=== PATIENT | female | born 1980 | race Caucasian/White ===

== ENCOUNTER 2018-11-28 16:04 | Emergency (ER) | payer SELFPAY ==
[~2018-11-28] VITALS: Ht 170.2 cm; Wt 68.5 kg
[2018-11-28 16:10] VITALS: BP 135/93
--- NOTE | 2018-11-28 16:20 | NUR ---
PATIENT PRESENTS TO THE ED WITH C/O DIZZINESS. PER PATIENT SHE WAS GETTING READY TO GO TO WORK AND DRANK ORANGE JUICE WHEN SHE SUDDENLY FELT DIZZY. PT REPORTS HAVING ONE EPISODE OF EMESIS. DENIES PAIN OR DIARRHEA. BED LOWERED WITH SIDE RAILS UP. WILL CONTINUE TO MONITOR
--- NOTE | 2018-11-28 16:51 | NUR ---
PT BEING EVALUATED BY DR MONTEZ
[2018-11-28] MEDS ORDERED: PROMETHAZINE 25 MG/ML VIAL IM ONE (17:00)
[2018-11-28] MEDS ORDERED: FAMOTIDINE 20 MG TAB PO ONE (17:00)
[2018-11-28] MEDS ORDERED: methylPREDNISolone SS 125 MG in WATER STERILE 2 ML IM ONE (17:00)
[2018-11-28] MEDS ORDERED: ONDANSETRON 4 MG ODT PO ONE (17:00)
[2018-11-28 17:29] LABS: APPEARANCE,URINE CLEAR (CLEAR); BILIRUBIN,URINE NEGATIVE (NEGATIVE); BLOOD, URINE NEGATIVE (NEGATIVE); COLOR,URINE YELLOW (YELLOW); LEUKOCYTE ESTERASE ,URINE NEGATIVE (NEGATIVE); NITRITE, URINE NEGATIVE (NEGATIVE); PH,URINE 7.5 (5.0-9.0); UGLUCOSE NEGATIVE (NEGATIVE)
[2018-11-28 19:12] VITALS: BP 126/88
--- NOTE | 2018-11-28 19:12 | NUR ---
Patient discharged with v/s stable. Written and verbal after care instructions given and explained. Patient alert, oriented and verbalized understanding of instructions. Ambulatory with steady gait. All questions addressed prior to discharge. ID band removed. Patient advised to follow up with PMD. Rx of FAMOTIDINE, ATARAZX WAS given. Patient educated on indication of medication including possible reaction and side effects. Opportunity to ask questions provided and answered.
== END 2018-11-28 19:12 | disposition home or self-care (01) ==
LOC: MED 16:04
DX: T78.1XXA Other adverse food reactions, not elsewhere classified, initial encounter (principal); R42 Dizziness and giddiness; F41.9 Anxiety disorder, unspecified; X58.XXXA Exposure to other specified factors, initial encounter
CPT/HCPCS: 81003; 81025; 87804; 96372; 99283; J2550; J2930; Q0162; 36415

== ENCOUNTER 2019-09-23 11:12 | Emergency (ER) | payer MEDICAID ==
[~2019-09-23] VITALS: Ht 170.2 cm; Wt 63.5 kg
[2019-09-23 11:16] VITALS: BP 131/76
--- NOTE | 2019-09-23 11:22 | NUR ---
Patient ambulated to bed 12. RN evaluating patient at bedside.
--- NOTE | 2019-09-23 11:34 | NUR ---
C/O R EAR PAIN 02/04 STARTING 5 DAYS AGO ACCOMPAINED BY N/V. PT STATES SHE ATTEMPTED TO USE PEROXIDE IN HER EAR BUT IT MADE HER SYMPTOMS WORSE. DENIES ABD PAIN, DIARRHEA, ETC. PT DENIES INJURY TO R EAR. STATES SHE USES A HEADPIECE AT WORK. BED IN LOW POSITION, SIDE RAIL UP X1.
--- NOTE | 2019-09-23 12:05 | NUR ---
ERMD AT BEDSIDE
[2019-09-23] MEDS ORDERED: NACL 0.9% 1,000 ML IV SCH (12:08)
[2019-09-23] MEDS ORDERED: ONDANSETRON 4 MG/2 ML VIAL IVP ONE (12:10)
--- NOTE | 2019-09-23 12:20 | NUR ---
PT UNABLE TO URINATE AT THIS TIME.
[2019-09-23 13:10] LABS: BASOPHILS % (AUTO) 0.3 % (0.0-2.0); EOSINOPHILS # (AUTO) 0.1 K/uL (0-0.4); HEMATOCRIT 42.4 % (36-48); LYMPHOCYTES # (AUTO) 1.5 K/uL (2.5-16.5); LYMPHOCYTES % (AUTO) 20.5 % (20.5-51.1); MEAN CORPUSCULAR HEMOGLOBIN 31 pg (27-31); MEAN CORPUSCULAR HGB CONC 33 g/dL (33-37); MEAN CORPUSCULAR VOLUME 92.8 fL (80-94); MONOCYTES # (AUTO) 0.8 K/uL (0.8-1.0); MONOCYTES % (AUTO) 11.1 % (1.7-9.3); NEUTROPHILS # (AUTO) 4.7 K/uL (1.8-7.7); NEUTROPHILS % (AUTO) 67.1 % (42.2-75.2); PLATELET COUNT (AUTO) 303 K/uL (140-450); RED BLOOD CELL COUNT(AUTO) 4.57 MIL/uL (4.20-5.40); RED CELL DISTRIBUTION WIDTH 12.8 % (11.6-13.7); WHITE BLOOD COUNT (AUTO) 7.1 K/uL (4.8-10.8)
[2019-09-23 13:23] LABS: ALBUMIN 3.4 g/dL (3.4-5.0); ANION GAP 16.4 (8-16); CARBON DIOXIDE 24.2 mmol/L (21-32); POTASSIUM 3.6 mmol/L (3.5-5.1); TOTAL BILIRUBIN 0.2 mg/dL (0.0-1.0)
--- NOTE | 2019-09-23 13:43 | NUR ---
URINE COLLECTED AND SENT TO LAB.
--- NOTE | 2019-09-23 14:50 | NUR ---
PT ASLEEP IN BED, NO NEW NEEDS AT THIS TIME
[2019-09-23 15:04] LABS: APPEARANCE,URINE HAZY (CLEAR); BILIRUBIN,URINE NEGATIVE (NEGATIVE); BLOOD, URINE NEGATIVE (NEGATIVE); COLOR,URINE YELLOW (YELLOW); LEUKOCYTE ESTERASE ,URINE NEGATIVE (NEGATIVE); NITRITE, URINE NEGATIVE (NEGATIVE); UGLUCOSE NEGATIVE (NEGATIVE)
[2019-09-23 16:31] VITALS: BP 121/73
--- NOTE | 2019-09-23 16:33 | NUR ---
Patient discharged with v/s stable. Written and verbal after care instructions given and explained. Patient alert, oriented and verbalized understanding of instructions. Ambulatory with steady gait. All questions addressed prior to discharge. ID band removed. Patient advised to follow up with PMD. Rx of CORTICOSPORIN given. Patient educated on indication of medication including possible reaction and side effects. Opportunity to ask questions provided and answered.
== END 2019-09-23 16:33 | disposition home or self-care (01) ==
LOC: MED 11:12
DX: H60.91 Unspecified otitis externa, right ear (principal); R11.2 Nausea with vomiting, unspecified
CPT/HCPCS: 36415; 80053; 81003; 83690; 84703; 85025; 96361; 96374; 99283; J2405; J7030

== ENCOUNTER 2020-08-12 23:32 | Emergency (ER) | payer MEDICAID, OTHER ==
[~2020-08-12] VITALS: Ht 170.2 cm; Wt 68.0 kg
[2020-08-12 23:40] VITALS: BP 133/83
--- NOTE | 2020-08-12 23:42 | NUR ---
To ED bed 05
--- NOTE | 2020-08-12 23:50 | NUR ---
PT 40 Y/O FEMALE BIB SELF FOR C/O "ALLERGIC REACTION" X 2 HOURS AGO WHEN GETTING STUNG BY A BEE. PT STATES, "LAST TIME I GOT STUNG BY A BEE I NEEDED TO GET EPI BECAUSE MY THROAT CLOSED UP." PT CURRENTLY DENIES THROAT DISCOMFORT. PT RESPIRATIONS ARE EVEN AND UNLABORED. LUNG SOUNDS CLEAR A/P BIALT. O2 SAT@ 99% ON RA. PT ADMITS TO TAKING 2 BENEDRYL PRIOR TO ARRIVAL. MEDHX: ULCERATIVE COLITIS NKA
--- NOTE | 2020-08-13 00:06 | NUR ---
ERMD AT BEDSIDE.
[2020-08-13] MEDS ORDERED: methylPREDNISolone SS 125 MG in WATER STERILE 2 ML IM ONE (00:10)
[2020-08-13] MEDS ORDERED: methylPREDNISolone SS 125 MG/2 ML VIAL ONE (00:22)
[2020-08-13] MEDS ORDERED: WATER STERILE 10 ML MC ONE (00:22)
[2020-08-13 00:32] VITALS: BP 133/83
--- NOTE | 2020-08-13 00:32 | NUR ---
Patient discharged with v/s stable. Written and verbal after care instructions given and explained. Patient alert, oriented and verbalized understanding of instructions. Ambulatory with steady gait. All questions addressed prior to discharge. ID band removed. Patient advised to follow up with PMD. Rx of PEPCID,EPIPEN, PREDNISONE, DIPHENHYDRAMINE given. Patient educated on indication of medication including possible reaction and side effects. Opportunity to ask questions provided and answered.
== END 2020-08-13 00:32 | disposition home or self-care (01) ==
LOC: MED 23:32
DX: T63.441A Toxic effect of venom of bees, accidental (unintentional), initial encounter (principal); L50.0 Allergic urticaria; Y92.89 Other specified places as the place of occurrence of the external cause
CPT/HCPCS: 96372; 99283; J2930

== ENCOUNTER 2020-10-15 11:43 | Emergency (ER) | payer OTHER ==
[~2020-10-15] VITALS: Ht 170.2 cm; Wt 68.0 kg
[2020-10-15 11:55] VITALS: BP 111/83
--- NOTE | 2020-10-15 11:59 | NUR ---
Patient ambulated to chair A. RN evaluating patient.
--- NOTE | 2020-10-15 12:00 | NUR ---
40 y/o female from home c/o right ear discomfort x 2 wks. Pt states dizziness due to discomfort with nausea. Has been using over the counter ear drops with no relief. Denies pain. Awake and alert. VSS
[2020-10-15 13:19] VITALS: BP 111/83
--- NOTE | 2020-10-15 13:19 | NUR ---
Patient discharged with v/s stable. Written and verbal after care instructions given and explained. Patient alert, oriented and verbalized understanding of instructions. Ambulatory with steady gait. All questions addressed prior to discharge. ID band removed. Patient advised to follow up with PMD. Rx of OFLOXACIN given. Patient educated on indication of medication including possible reaction and side effects. Opportunity to ask questions provided and answered.
== END 2020-10-15 13:19 | disposition home or self-care (01) ==
LOC: MED 11:43
DX: H60.8X1 Other otitis externa, right ear (principal)
CPT/HCPCS: 99283

== ENCOUNTER 2021-04-02 21:50 | Emergency (ER) | payer OTHER ==
[~2021-04-02] VITALS: Ht 170.2 cm; Wt 72.6 kg
[2021-04-02 21:55] VITALS: BP 123/82
--- NOTE | 2021-04-02 21:58 | NUR ---
TO LOBBY A/W BED AMBULATORY
--- NOTE | 2021-04-02 23:55 | NUR ---
AMBULATED TO ROOM 7
--- NOTE | 2021-04-03 00:02 | NUR ---
41 Y/O PATIENT PRESENTS TO ED C/O BURN IN RT UPPER LEG . PT STATES "I ACCIDENTALLY DROPPED ACID ON MY LEGS WHEN I WAS USING GOLD TESTING KIT. I'M JUST CONCERNED THAT IT GOT INFECTED." . DENIES N/V/D; SKIN IS PINK/WARM/DRY; AAOX4 WITH EVEN AND STEADY GAIT; LUNGS CLEAR BL; HR EVEN AND REGULAR; PT DENIES ANY FEVER, CP, SOB, OR COUGH AT THIS TIME; PATIENT STATES PAIN OF 3/10 AT THIS TIME; VSS; PATIENT POSITIONED FOR COMFORT; HOB ELEVATED; BEDRAILS UP X2; BED DOWN. ER MD MADE AWARE OF PT STATUS. NKA PMH: DENIES
[2021-04-03] MEDS ORDERED: SILVER SULFADIAZINE 1% 50 GM JAR TP ONE (00:25)
[2021-04-03] MEDS ORDERED: SULFAMETH/TRIMETH DS 800/160MG 1 TAB PO ONE (00:25)
[2021-04-03] MEDS ORDERED: SILV-55 TP (00:27)
[2021-04-03] MEDS ORDERED: SULF-59 PO (00:27)
--- NOTE | 2021-04-03 00:47 | NUR ---
Patient discharged with v/s stable. Written and verbal after care instructions given and explained. Patient alert, oriented and verbalized understanding of instructions. Ambulatory with steady gait. All questions addressed prior to discharge. ID band removed. Patient advised to follow up with PMD. Rx of BACTRIM AND SILVADENE given. Patient educated on indication of medication including possible reaction and side effects. Opportunity to ask questions provided and answered.
[2021-04-03 00:49] VITALS: BP 123/82
== END 2021-04-03 00:47 | disposition home or self-care (01) ==
LOC: MED 21:50
DX: T23.101A Burn of first degree of right hand, unspecified site, initial encounter (principal); X12.XXXA Contact with other hot fluids, initial encounter; Y93.89 Activity, other specified; Y92.89 Other specified places as the place of occurrence of the external cause; Y99.8 Other external cause status
CPT/HCPCS: 16020; 99283

== ENCOUNTER 2021-06-12 14:01 | Emergency (ER) | payer OTHER ==
[~2021-06-12] VITALS: Ht 170.2 cm; Wt 72.6 kg
[~2021-06-12 14:01] MED LIST: SILV-55 TP; SULF-59 PO
[2021-06-12 14:25] VITALS: BP 124/69
--- NOTE | 2021-06-12 14:47 | NUR ---
41 yo f c/o dysuria, hematuria and bilateral flank pain x 4 days. Pt is now expericning lower back tenderness since this am and is positive for CVA tenderness. Pt has had vomiting since this am, and is -abdominal pain and -fever. lmp: 05/17/21 pmh: ulcerative colitis medS: none nka
[2021-06-12] MEDS ORDERED: VIB100 PO (15:33)
[2021-06-12] MEDS ORDERED: CEPH-588 PO (15:33)
[2021-06-12] MEDS ORDERED: cefTRIAXone 500 MG VIAL ONE (15:35)
[2021-06-12] MEDS ORDERED: LIDOCAINE MPF 1% 5 ML ONE (15:36)
[2021-06-12] MEDS: cephALEXin 500 MG CAP PO ONE (15:43)
[2021-06-12] MEDS: cefTRIAXone 500 MG in LIDOCAINE MPF 1% 1 ML IM ONE (15:43)
[2021-06-12] MEDS: DOXYCYCLINE 100 MG CAP PO SCH (15:43)
[2021-06-12 15:54] VITALS: BP 114/71
--- NOTE | 2021-06-12 15:55 | NUR ---
Patient discharged with v/s stable. Written and verbal after care instructions given and explained. Patient alert, oriented and verbalized understanding of instructions. Ambulatory with steady gait. All questions addressed prior to discharge. ID band removed. Patient advised to follow up with PMD. Rx of doxycycline and keflex given. Patient educated on indication of medication including possible reaction and side effects. Opportunity to ask questions provided and answered.
== END 2021-06-12 15:55 | disposition home or self-care (01) ==
LOC: MED 14:01
DX: N39.0 Urinary tract infection, site not specified (principal); Z11.3 Encounter for screening for infections with a predominantly sexual mode of transmission
CPT/HCPCS: 36415; 81002; 81025; 87086; 87491; 96372; 99283; J0696; J2001

== ENCOUNTER 2022-02-22 12:02 | Emergency (ER) | payer OTHER ==
[~2022-02-22] VITALS: Ht 170.2 cm; Wt 76.3 kg
[~2022-02-22 12:02] MED LIST changes: +CEPH-588 PO; +VIB100 PO
[2022-02-22 12:04] VITALS: BP 117/84
--- NOTE | 2022-02-22 12:12 | NUR ---
BIB SELF C/O 04/06 LEFT EAR PAIN X 3 DAYS , SORE THROAT X LAST NIGHT.PMH: COLITIS. DENIES N/V/D; SKIN IS PINK/WARM/DRY; AAOX4 WITH EVEN AND STEADY GAIT; LUNGS CLEAR BL; HR EVEN AND REGULAR; PT DENIES ANY FEVER, CP, SOB, OR COUGH AT THIS TIME.
--- NOTE | 2022-02-22 13:00 | NUR ---
Patient being evaluated by LUCERO MASCORRO at [facility].
[2022-02-22] MEDS ORDERED: PHEN177S23 PO (13:03)
[2022-02-22] MEDS ORDERED: PRED20TA5 PO (13:03)
[2022-02-22] MEDS ORDERED: NAPR-54 PO (13:03)
[2022-02-22] MEDS ORDERED: KETOROLAC 30 MG/ML VIAL IM ONE (13:05)
[2022-02-22 13:33] VITALS: BP 119/78
--- NOTE | 2022-02-22 13:33 | NUR ---
Patient discharged with v/s stable. Written and verbal after care instructions given and explained. Patient alert, oriented and verbalized understanding of instructions. Ambulatory with steady gait. All questions addressed prior to discharge. ID band removed. Patient advised to follow up with PMD. Rx of NAPROSYN, DELTASONE & PHENOL given. Patient educated on indication of medication including possible reaction and side effects. Opportunity to ask questions provided and answered.
== END 2022-02-22 13:33 | disposition home or self-care (01) ==
LOC: MED 12:02
DX: J02.9 Acute pharyngitis, unspecified (principal); H92.03 Otalgia, bilateral; Z79.899 Other long term (current) drug therapy; Z79.1 Long term (current) use of non-steroidal anti-inflammatories (NSAID); Z79.2 Long term (current) use of antibiotics
CPT/HCPCS: 96372; 99283; J1885

== ENCOUNTER 2022-10-12 19:39 | Emergency (ER) | payer OTHER ==
[~2022-10-12] VITALS: Ht 170.2 cm; Wt 68.0 kg
[~2022-10-12 19:39] MED LIST changes: +NAPR-54 PO; +PHEN177S23 PO; +PRED20TA5 PO
[2022-10-12 19:45] VITALS: BP 136/84
--- NOTE | 2022-10-12 19:45 | NUR ---
TO LOBBY A/W BED AMBULATORY
--- NOTE | 2022-10-12 21:05 | NUR ---
SEEN AND EXAMINED BY CECY
[2022-10-12] MEDS ORDERED: CIPR7.5S OT (21:36)
[2022-10-12 21:55] VITALS: BP 136/84
--- NOTE | 2022-10-12 21:55 | NUR ---
Patient discharged with v/s stable. Written and verbal after care instructions given and explained. Patient alert, oriented and verbalized understanding of instructions. Ambulatory with steady gait. All questions addressed prior to discharge. ID band removed. Patient advised to follow up with PMD. Rx of CIPRODEX given. Patient educated on indication of medication including possible reaction and side effects. Opportunity to ask questions provided and answered.
== END 2022-10-12 21:55 | disposition home or self-care (01) ==
LOC: MED 19:39
DX: H60.91 Unspecified otitis externa, right ear (principal); Z79.899 Other long term (current) drug therapy
CPT/HCPCS: 99283

== ENCOUNTER 2023-09-22 20:36 | Emergency (ER) | payer SELFPAY ==
[~2023-09-22] VITALS: Ht 170.2 cm; Wt 68.0 kg
[~2023-09-22 20:36] MED LIST changes: +CIPR7.5S OT
[2023-09-22 21:02] VITALS: BP 118/75; PULSE 105; RESP 20; TEMP 99.2; O2SAT 99
[2023-09-23 01:32] VITALS: BP 118/75; PULSE 105; RESP 20; TEMP 99.2; O2SAT 99
[2023-09-23] MEDS ORDERED: OFLO5SOL27 LEFT EAR (12:57)
[2023-09-23] MEDS ORDERED: BENZ-300 PO (12:57)
[2023-09-23] MEDS ORDERED: AMOX1TAB8 PO (12:57)
[2023-09-23] MEDS ORDERED: IBUP-2213 PO (12:57)
== END 2023-09-23 01:32 | disposition left against medical advice (07) ==
LOC: MED 20:36
DX: J02.9 Acute pharyngitis, unspecified (principal); Z53.21 Procedure and treatment not carried out due to patient leaving prior to being seen by health care provider
CPT/HCPCS: 99281

== ENCOUNTER 2023-09-23 11:44 | Emergency (ER) | payer SELFPAY ==
[~2023-09-23] VITALS: Ht 172.7 cm; Wt 72.6 kg
[2023-09-23 12:10] VITALS: BP 118/81; PULSE 94; RESP 18; TEMP 100; O2SAT 98
[2023-09-23] MEDS ORDERED: BENZ-300 PO (12:57)
[2023-09-23] MEDS ORDERED: OFLO5SOL27 LEFT EAR (12:57)
[2023-09-23] MEDS ORDERED: IBUP-2213 PO (12:57)
[2023-09-23] MEDS ORDERED: AMOX1TAB8 PO (12:57)
[2023-09-23 13:02] VITALS: BP 118/81; PULSE 94; RESP 18; TEMP 99.9; O2SAT 94
== END 2023-09-23 13:02 | disposition home or self-care (01) ==
LOC: MED 11:44
DX: H66.92 Otitis media, unspecified, left ear (principal); J02.9 Acute pharyngitis, unspecified; H60.92 Unspecified otitis externa, left ear; Z79.899 Other long term (current) drug therapy; Z79.1 Long term (current) use of non-steroidal anti-inflammatories (NSAID); Z79.2 Long term (current) use of antibiotics
CPT/HCPCS: 99281